=== PATIENT | female | born 1975 | race Caucasian/White ===

== ENCOUNTER 2018-08-25 08:48 | Emergency (ER) | payer BC ==
[2018-08-25] MEDS: ACETAMINOPHEN 500 MG TAB PO (10:20)
== END 2018-08-25 10:59 | disposition home or self-care (01) ==
LOC: FTE 08:48
DX: J06.9 Acute upper respiratory infection, unspecified (principal)
CPT/HCPCS: 71045; 81025; 87400; 99284-25